=== PATIENT | female | born 2000 | race Caucasian/White ===

== ENCOUNTER 2023-11-01 18:33 | Emergency (ER) | payer OTHER, BC, SELFPAY ==
--- NOTE | ~2023-11-01 | XR_ITS ---
EXAMINATION: XR foot LT min 3V DATE: 11/01/2023 18:51 INDICATION: Left foot swelling. Fall. TECHNIQUE: 3 views of left foot were obtained. COMPARISON: None. FINDINGS: There is an oblique fracture of diaphysis of fifth metatarsal. The distal fracture fragment demonstrates 2 mm dorsomedial displacement. Joint spaces are normal. IMPRESSION: 1. Oblique fracture of diaphysis of fifth metatarsal. Reviewed, dictated and finalized at location E.
--- NOTE | ~2023-11-01 | XR_ITS ---
EXAMINATION: XR ankle LT min 3V DATE: 11/01/2023 18:50 INDICATION: Left ankle swelling. Fall. TECHNIQUE: 4 views of left ankle were obtained. COMPARISON: None. FINDINGS: Alignment is normal. There is an oblique fracture of diaphysis of fifth metatarsal. The dis higinio fracture fragment demonstrates 2 mm medial dorsal displacement. Joint spaces are normal. There is ankle soft tissue swelling. IMPRESSION: 1. Oblique fracture of diaphysis of fifth metatarsal. Reviewed, dictated and finalized at location E.
[2023-11-01 18:35] VITALS: BP 146/93; PULSE 104; RESP 16; TEMP 36.6; O2SAT 100
--- NOTE | 2023-11-01 19:43 | ED.GENADULT ---
HPI - General Adult General Chief complaint: Extremity Injury, Lower Stated complaint: L foot injury Time Seen by Provider: 11/01/23 19:29 History of Present Illness HPI narrative: 23-year-old female presents to the emergency department for evaluation for left ankle pain. Patient states that she jumped a tyson And injured her foot. Patient denies striking head denies loss conscious. Patient denies any neck or back pain. Patient denies any other pain or injury other than her left foot. Related Data Allergies Allergy/AdvReac Type Severity Reaction Status Date / Time peanut AdvReac Difficulty Verified 11/01/23 19:27 Swallowing Review of Systems Review of Systems: All systems reviewed & are unremarkable except as noted in HPI and below PMFSH Social History Social History Smoking status: Never smoker Alcohol intake: never Exam Narrative: APPEARANCE: Well appearing, no pain, no distress, well-nourished. HEAD: normocephalic, atraumatic. EYES: PERRLA/EOMI, conjunctivae clear. NOSE: Normal no drainage EARS:TMS clear with good light reflex. THROAT: Pharynx clear, no exudate. NECK: Supple. No adenopathy, no masses. RESPIRATORY: Airway patent, respirations nonlabored. Clear to auscultation bilaterally, no rales, rhonchi, wheezing. CARDIOVASCULAR: Regular rate and rhythm without murmurs rubs or gallops. ABDOMINAL: Soft, nontender, nondistended, normal bowel sounds MUSCULOSKELETAL: Left foot tenderness to palpation and left lateral ankle edema NEURO: Alert. Cranial nerves II through XII intact. grossly intact SKIN: Warm, dry. Normal Color PSYCHIATRIC: Normal affect/mood. Course Course Emergency Course: patient was placed in a splint and provided crutches for limited weight-bearing. Vital Signs Vital signs: Vital Signs Temperature 97.8 F 11/01/23 18:35 Pulse Rate 104 H 11/01/23 18:35 Respiratory Rate 16 11/01/23 18:35 Blood Pressure 146/93 H 11/01/23 18:35 Pulse Oximetry 100 11/01/23 18:35 Oxygen Delivery Room Air 11/01/23 18:35 Temperature 97.8 F 11/01/23 18:35 Pulse Rate 104 H 11/01/23 18:35 Respiratory Rate 16 11/01/23 18:35 Blood Pressure 146/93 H 11/01/23 18:35 Pulse Oximetry 100 07/11/24 18:35 Oxygen Delivery Room Air 11/01/23 18:35 Medical Decision Making MDM Narrative Medical decision making narrative: 23-year-old female presents emergency department for evaluation for an injury to her left foot. Patient does have an oblique 5th metatarsal fracture. Patient was provided crutches and a short leg splint. Patient was encouraged of close follow-up with Orthopedics. Differential Diagnosis Differential Diagnosis: Foot fracture, ankle fracture, proximal tib-fib fracture, ankle sprain Vital Signs Vital Signs: Vital Signs Temperature 97.8 F 11/01/23 18:35 Pulse Rate 104 H 11/01/23 18:35 Respiratory Rate 16 11/01/23 18:35 Blood Pressure 146/93 H 11/01/23 18:35 Pulse Oximetry 100 11/01/23 18:35 Oxygen Delivery Room Air 11/01/23 18:35 Temperature 97.8 F 11/01/23 18:35 Pulse Rate 104 H 11/01/23 18:35 Respiratory Rate 16 11/01/23 18:35 Blood Pressure 146/93 H 11/01/23 18:35 Pulse Oximetry 100 11/01/23 18:35 Oxygen Delivery Room Air 11/01/23 18:35 Imaging Data Radiologist's impression: Impressions Ankle X-Ray 11/01/23 18:54 IMPRESSION: 1. Oblique fracture of diaphysis of fifth metatarsal. Foot X-Ray 11/01/23 18:55 IMPRESSION: 1. Oblique fracture of diaphysis of fifth metatarsal. Discharge Plan Discharge Clinical Impression: Closed fracture of fifth metatarsal bone Patient Disposition: Home, Self-Care Condition: Stable Instructions: Antibiotic Form, Crutch Instructions (ED), Foot Fracture in Adults (ED), Splint Care (ED) Additional Instructions: Tylenol and ibuprofen for pain control. Splint care as directed. Elevate the foot. Crutches for nonweightb
[2023-11-01] MEDS: ACETAMINOPHEN 325 MG TABLET 650 MG PO (20:18)
== END 2023-11-01 20:45 | disposition home or self-care (01) ==
PROVIDERS: Emergency Provider Emergency Medicine; PCP Pediatrics
DX: S92.352A Displaced fracture of fifth metatarsal bone, left foot, initial encounter for closed fracture (principal); X50.9XXA Other and unspecified overexertion or strenuous movements or postures, initial encounter; Y93.57 Activity, non-running track and field events
CPT/HCPCS: 29515; 73610; 73630; 99284; A9270

== ENCOUNTER 2023-11-15 09:42 | Outpatient (CLI) | payer BC, OTHER, SELFPAY ==
--- NOTE | ~2023-11-15 | US_ITS ---
EXAMINATION: US venous doppler [facility] DATE: 11/15/2023 11:22 INDICATION: Left lower limb pain TECHNIQUE: Grayscale ultrasound images without and with compression and Doppler ultrasound images of the left lower extremity veins were obtained. COMPARISON: None. FINDINGS: The visualized portions of left common femoral vein, profunda (deep) femoral vein, femoral vein, popl iteal vein, peroneal veins, posterior tibial veins, gastrocnemius vein and greater saphenous vein out flow are patent. IMPRESSION: 1. No deep venous thrombosis in the left lower limb. Reviewed, dictated and finalized at location A.
== END 2023-11-15 09:43 | disposition home or self-care (01) ==
PROVIDERS: PCP Pediatrics; Visit Provider Orthopaedic Surgery
DX: M79.662 Pain in left lower leg (principal)
CPT/HCPCS: 93971